=== PATIENT | female | born 1990 | race Caucasian/White ===

== ENCOUNTER 2019-01-28 22:32 | Emergency (ER) | payer OTHER ==
[~2019-01-28] VITALS: Ht 165.1 cm; Wt 68.0 kg
[2019-01-28 22:38] VITALS: Ht 165.1 cm; Wt 68.0 kg
[2019-01-29 01:00] VITALS: BP 122/78; PULSE 81; RESP 18
== END 2019-01-29 01:09 | disposition home or self-care (01) ==
LOC: FTE 22:32
DX: R10.2 Pelvic and perineal pain (principal)
CPT/HCPCS: 76856; 81003; 81025; Z7502